=== PATIENT | male | born 1995 | race Caucasian/White ===

== ENCOUNTER 2022-05-04 12:06 | Emergency (ER) | payer BC | END 2022-05-04 17:36 | disposition left against medical advice (07) | LOC: JD.ED 12:06 | DX: Z53.21 Procedure and treatment not carried out due to patient leaving prior to being seen by health care provider (principal) ==

== ENCOUNTER 2022-05-05 11:09 | Emergency (ER) | payer BC ==
[2022-05-05] MEDS ORDERED: Ketorolac 60 MG/2 ML SDV IM ONE (11:38)
== END 2022-05-05 13:10 | disposition home or self-care (01) ==
LOC: JD.ED 11:09
DX: M25.562 Pain in left knee (principal); M25.462 Effusion, left knee
CPT/HCPCS: 36415; 73562; 80053; 83540; 84550; 85025; 96372; 99283; J1885